=== PATIENT | male | born 1955 | race African-American/Black ===

== ENCOUNTER 2020-03-09 13:30 | Outpatient (RCR) | payer OTHER, SELFPAY ==
--- NOTE | 2020-03-05 12:01 | HP.PTEVAL ---
Patient's Visit Information HARI MUSE is a 64 year old M referred to Physical Therapy by CHICHI ELLIOTT with a diagnosis of LOW BACK PAIN. Date of Evaluation: 03/05/20 Physical Therapist: Chintan Jimenez, PT, Cert MDT, OCS - Visit Plan Frequency: 2x /Week Duration: 7 WEEKS Plan: H/O LUMBAR FUSION 2004. PT INTERVENTIONS WITH AQUATIC PT BLE STRENGTHENING ,POSTURAL EX'S,DLS ABD/BACK,LE FLEXABLITY - Subjective This 64 y/o male presents to physical therapy with low back pain. Patient has had lumbar pain 2004 ,patient 2004 had lumbar fusion . Patient symptoms has increase last [address] from [place] no diagnostics. Patient motrin 800,meloxicam which has helped. Patient location of pain symmtrical lumbar with radicular symptoms right > left leg . Aggravetes bending,lifting,walking and standing extended distances. Alleviating factors rest and MEDS. C/O parathesia/tingling right foot. Bowel/bladder -.Coughing/sneezing +. Patient has had PT 10 years ago. Patient condtion affects ADLS,housework tasks and function. Symptom affects QOL. SOCAIL: single. VOCATION: disability Vet - Pain Bilateral Back Pain Intensity (Out of 10): 7 Pain Intensity Range: 10 Bilateral Lower Extremity Pain Intensity (Out of 10): 6 Pain Intensity Range: 10 - Objective POSTURE: mild foward posture. GAIT: ambulates with mild foward posture reciprocal pattern. NEURO : c/o parathesia right foot,reflexes L3-4,L4-5,L5-S1 1/3. SYMMTRIES: align. PALAPTION : tender L-S region ,paraspinals. FLEXABLITY: hams mod/severe tight. LUMBAR ROM: flexion flexion mod/sever loss,extension severe loss,side glides mod loss. MMT: quad 3+/5,hams 4-/5,hip flexion 3+/5,hip abd 3+/5,ankle 4-/5 - Special Tests L/S Slump test left side: Positive L/S Slump test right side: Positive L/S Left Straight Leg Raise: Positive L/S Right Straight Leg Raise: Positive - Goals Goal 1:: Independant with HEP. Goal Time Frame: 4-6 Weeks Goal 2:: Patient to decrease back pain and legs symptoms by 50 % or > to improve function Goal Time Frame: 4-6 Weeks Goal 3:: Patient to increase lumbar ROM for function of recovery Goal Time Frame: 4-6 Weeks Goal 4:: Patient to improve BLE strength to 4-/5 to improve function with ADL'S Goal Time Frame: 4-6 Weeks Goal 5:: Patient to increase back owestry score by 5 points or > to improve QOL. Goal Time Frame: 4-6 Weeks - Rehabilitation Potential Physical Therapy Diagnosis: This 64 y/o patient has symmtrical lumbar pain with radicular symptoms in legs with h/o lumbar surgery with pain ,weakness in legs,poor lumbar ROM impairs ADLS and housework tasks thus benifit from skilled PT Rehabilitation Potential: Good - Anticipated Interventions Patient/Client Instruction: Educate patient on: Condition, Plan of Care For the Purpose of:: To decrease pain, To increase ROM, To improve muscle performance and motor function, To improve ability to perform ADL's, To increase tolerance to activity/condition/position, To improve ability of physical actions for home/community/work/leisure, To improve health of tissue, To decrease soft tissue restriction, To improve ability to perform tasks related to life management Therapeutic Exercise to Include: Strength training, Endurance training, Body mechanics, Postural training, Flexibilty training, In an aquatic setting, Active ROM, Dynamic Lumbar Stabilization For the Purpose of:: To decrease pain, To decrease swelling/inflammation, To improve muscle performance and motor function, To improve ability to perform ADL's, To increase tolerance to activity/condition/position, To improve ability of physical actions for home/community/work/leisure, To improve health of tissue, To decrease soft tissue restriction, To reduce risk of recurrence, To improve health and function, To improve ability to perform tasks related to life management Thank you for the opportunity to evaluate your patient. For Medicare and Medicare HMO plans, please review the plan of care and approve it. It will need to be FAXED BACK to us at [phone] for Medicare purposes. For Medicare only, by signing this I certify the plan of care. Please let me know if there are questions or concerns regarding this plan of care. Physician Signature: Date:
--- NOTE | 2020-08-22 09:10 | HP.PT.NRP ---
HARI MUSE was seen in my office for initial evaluation on 03/05/20. The following Plan of Care was established for this patient: Initial Frequency: 2x /Week Initial Duration: 7 WEEKS Patient/Client Instruction: Educate patient on: Condition, Plan of Care For the Purpose of:: To decrease pain, To increase ROM, To improve muscle performance and motor function, To improve ability to perform ADL's, To increase tolerance to activity/condition/position, To improve ability of physical actions for home/community/work/leisure, To improve health of tissue, To decrease soft tissue restriction, To improve ability to perform tasks related to life management Therapeutic Exercise to Include: Strength training, Endurance training, Body mechanics, Postural training, Flexibilty training, In an aquatic setting, Active ROM, Dynamic Lumbar Stabilization For the Purpose of:: To decrease pain, To decrease swelling/inflammation, To improve muscle performance and motor function, To improve ability to perform ADL's, To increase tolerance to activity/condition/position, To improve ability of physical actions for home/community/work/leisure, To improve health of tissue, To decrease soft tissue restriction, To reduce risk of recurrence, To improve health and function, To improve ability to perform tasks related to life management This patient was last seen in our office . Pertinent comments regarding their Physical therapy will appear below: Patient seen for PT for Aquatic therapy for back pain . At this point I will be discontinuing this patient from physical therapy. I would be happy to see this patient again in the future if found appropriate by the physician. Thank you! Chintan Jimenez, PT, Cert MDT, OCS
== END 2020-03-09 19:00 | disposition home or self-care (01) ==
LOC: PT 13:30
DX: M54.5 Low back pain (principal)
CPT/HCPCS: 97113; 97162

== ENCOUNTER 2021-02-17 11:45 | Emergency (ER) | payer OTHER, SELFPAY ==
[2021-02-17 11:46] VITALS: BP 123/76; PULSE 89; RESP 18; TEMP 36.4; O2SAT 97; BMI 31.2
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
[2021-02-17 12:26] VITALS: RESP 16
== END 2021-02-17 12:30 | disposition home or self-care (01) ==
LOC: ED 12:21
PROVIDERS: Emergency Provider Emergency Medicine
DX: M54.2 Cervicalgia (principal); M54.5 Low back pain; V89.2XXA Person injured in unspecified motor-vehicle accident, traffic, initial encounter; Y93.9 Activity, unspecified; Y92.9 Unspecified place or not applicable; F17.210 Nicotine dependence, cigarettes, uncomplicated
CPT/HCPCS: 99282

== ENCOUNTER → 2021-03-21 10:45 | Outpatient (CLI) | payer OTHER, SELFPAY ==
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
== END ==
PROVIDERS: Referring Provider Chiropractor; Visit Provider Chiropractor
DX: S16.1XXA Strain of muscle, fascia and tendon at neck level, initial encounter (principal); S33.5XXA Sprain of ligaments of lumbar spine, initial encounter
CPT/HCPCS: 72050; 72110

== ENCOUNTER → 2023-07-10 | Outpatient (CLI) | payer OTHER, SELFPAY ==
--- NOTE | 2023-07-10 14:34 | CT_ITS ---
STUDY: LOW DOSE CT LUNG CANCER SCREENING REASON FOR EXAM: Male, 68 years old. Long-term smoking history RADIATION DOSAGE (If Supplied By Facility): CTDIvol = ( 4.02 ) mGy, DLP = ( 144.96 ) mGycm TECHNIQUE: No contrast was administered. Low dose technique was utilized (average mAS-38 and kVp 120). 1.25 mm axial source images with a slice interval of 1.25-mm were reconstructed in lung windows. 2.5 mm axial source images with a slice interval of 2.5-mm were reconstructed in lung windows. 5.0 mm axial source images with a slice interval of 5.0-mm were reconstructed in soft tissue windows. COMPARISON: None. FINDINGS: Lung windows show the lungs to be normally expanded. On axial image 71 there is a noncalcified 6.6 mm nodule in the right upper lobe. No other suspicious noncalcified mass or nodule. No organized infiltrate or effusion. Limited soft tissue windows show normal-appearing thyroid gland. No suspicious axillary, mediastinal, or perihilar mass or adenopathy. No thoracic aortic aneurysm. No calcified coronary vessels. Bony structures show degenerative change. Limited cuts through the upper abdomen do not show any suspicious abnormality. CT/Low Dose CT Lung Screening IMPRESSION: Lung-RADS category 4A - Screening at 3 months with LDCT or evaluation with PET/CT may be used. IMPORTANT NOTES FOR USE: ACR Lung-RADS Version 1.1 Assessment Categories Release Date: 2018 Category: Coded 0-4 bases on nodule(s) with highest degree of suspicion. Negative screen is defined as categories 1 and 2; a positive screen is defined as categories 3 and 4. Category 3 and 4A nodules that are unchanged on interval CT should be coded as category 2, and individuals returned to screening in 12 months. Category 4X: Category 3 or 4 nodules with additional imaging findings that increase the suspicion of lung cancer, such as spiculation, GGN that doubles in size in 1 year, enlarged lymph notes, etc. Category Modifiers: S (significant finding unrelated to lung cancer) Electronically Signed: Mj Ashley MD at 9:00 EST ,
== END | disposition home or self-care (01) ==
LOC: CT 14:32
DX: Z12.2 Encounter for screening for malignant neoplasm of respiratory organs (principal); F17.200 Nicotine dependence, unspecified, uncomplicated
CPT/HCPCS: 71271

== ENCOUNTER → 2024-01-06 | Outpatient (CLI) | payer OTHER, SELFPAY ==
--- NOTE | 2024-01-06 13:03 | CT_ITS ---
STUDY: CT CHEST WITHOUT CONTRAST REASON FOR EXAM: Male, 68 years old. F/U R LUNG NODULE RADIATION DOSAGE (If Supplied By Facility): CTDIvol = ( 16.77 ) mGy, DLP = ( 637.04 ) mGycm TECHNIQUE: Transaxial imaging was performed without the administration of intravenous contrast material. Multiplanar coronal and sagittal images were reformatted. Individualized dose optimization techniques were used for this CT. COMPARISON: Comparison is made with prior study July 10, 2023. FINDINGS: CHEST Stable 6 mm noncalcified nodule in the anterior aspect of the right upper lobe as seen on axial image #32. There is no demonstrated pleural abnormality. There are calcifications of the coronary arteries. There are small lymph nodes within the mediastinum, which are normal in size and morphology most compatible with reactive lymph hyperplasia. Normal hilar regions. Normal unenhanced pulmonary arteries. Mild atherosclerotic plaque formation of the aortic arch. Normal osseous structures. There is no demonstrated abnormality of the visualized upper abdomen. CT/Chest without Contrast IMPRESSION: Stable examination. Electronically Signed: Carlos Nuno MD at 14:00 EDT ,
== END | disposition home or self-care (01) ==
LOC: CT 13:00
DX: R91.1 Solitary pulmonary nodule (principal)
CPT/HCPCS: 71250